=== PATIENT | female | born 1995 | race Caucasian/White ===

== ENCOUNTER 2016-11-30 04:50 | Emergency (ER) | payer SELFPAY ==
[~2016-11-30] VITALS: Ht 162.6 cm; Wt 127.8 kg
[~2016-11-30 04:50] MED LIST: CYCL-259 PO; DOCU240C31 PO; IBUP-1222 PO; OXYC-302 PO
[2016-11-30 04:51] VITALS: BP 140/88
[2016-11-30] MEDS ORDERED: LIDOCAINE 1%, 20ML ONE (05:01)
[2016-11-30] MEDS ORDERED: LIDOCAINE 1%, 20ML SQ ONE (05:30)
[2016-11-30] MEDS ORDERED: BACITRACIN ZINC OINT 500U/GM, 0.9 GM ONE (06:20)
== END 2016-11-30 06:28 | disposition home or self-care (01) ==
LOC: ED 05:35
DX: S71.111A Laceration without foreign body, right thigh, initial encounter (principal); W26.8XXA Contact with other sharp object(s), not elsewhere classified, initial encounter; Y93.89 Activity, other specified; Y99.8 Other external cause status; Y92.009 Unspecified place in unspecified non-institutional (private) residence as the place of occurrence of the external cause
CPT/HCPCS: 12034

== ENCOUNTER 2016-12-10 18:07 | Emergency (ER) | payer BC ==
[~2016-12-10] VITALS: Ht 162.6 cm; Wt 125.4 kg
[2016-12-10 18:11] VITALS: BP 123/72
== END 2016-12-10 18:46 | disposition home or self-care (01) ==
LOC: ED 18:40
DX: S71.111D Laceration without foreign body, right thigh, subsequent encounter (principal)
CPT/HCPCS: 99281

== ENCOUNTER 2018-08-20 16:24 | Emergency (ER) | payer BC ==
[~2018-08-20] VITALS: Ht 162.6 cm; Wt 102.1 kg
[2018-08-20 16:40] VITALS: BP 114/70
--- NOTE | 2018-08-20 17:05 | NUR ---
URINE COLLECTED/SENT TO LAB. WARM BLANKET PROVIDED, CALL LIGHT WITHIN REACH. ERP IN TO SEE PT.
[2018-08-20 17:23] LABS: MICROSCOPIC INDICATED
[2018-08-20 17:24] LABS: CULTURE INDICATED? YES
[2018-08-20 17:35] LABS: BASOPHILS # (AUTO) 0.04 x10^3/uL (0-0.1); BASOPHILS % (AUTO) 1 % (0-1); EOSINOPHILS # (AUTO) 0.08 x10^3/uL (0-0.4); EOSINOPHILS % (AUTO) 1 % (1-7); LYMPHOCYTES # (AUTO) 1.97 x10^3/uL (1-3.4); LYMPHOCYTES % (AUTO) 28 % (22-44); MD NO; MEAN CORPUSCULAR HGB CONC 33.8 g/dL (32.4-35.8); MEAN CORPUSCULAR VOLUME 88.8 fL (80-100); MEAN PLATELET VOLUME 9.6 fL (7.4-10.4); MONOCYTES # (AUTO) 0.36 x10^3/uL (0.2-0.8); MONOCYTES % (AUTO) 5 % (2-9); NEUTROPHILS # (AUTO) 4.68 x10^3/uL (1.8-6.8); NEUTROPHILS % (AUTO) 66 % (42-75); PLATELET COUNT 261 x10^3/uL (130-400); RED BLOOD COUNT 4.39 x10^6/uL (3.82-5.3); RED CELL DISTRIBUTION WIDTH 13.3 % (9.6-15.2)
[2018-08-20 17:43] LABS: ALBUMIN 3.6 g/dL (3.4-5.0); ANION GAP 5 mmol/L (5-15); CALCIUM 8.7 mg/dL (8.5-10.1); CHLORIDE 112 mmol/L (98-107); CREATININE 0.55 mg/dL (0.55-1.02)
--- NOTE | 2018-08-20 17:55 | NUR ---
PT TO US.
--- NOTE | 2018-08-20 18:44 | NUR ---
US RESULTS BACK, PT FOR RECHECK.
--- NOTE | 2018-08-20 18:59 | NUR ---
REPORT TO [facility].
== END 2018-08-20 19:12 | disposition home or self-care (01) ==
LOC: ED 17:32
DX: O23.11 Infections of bladder in pregnancy, first trimester (principal); Z3A.12 12 weeks gestation of pregnancy
CPT/HCPCS: 36415; 76801; 80048; 81001; 82040; 84702; 85025; 86901; 87086; 99284

== ENCOUNTER 2018-10-20 20:17 | Outpatient (CLI) | payer BC ==
[~2018-10-20] VITALS: Ht 162.6 cm; Wt 100.0 kg
[2018-10-20 20:49] LABS: MICROSCOPIC INDICATED
[2018-10-20] MEDS ORDERED: ONDA4TAB7 PO (21:14)
[2018-10-20] MEDS ORDERED: NITROFURANTOIN (MACROBID) 100 MG CAPSULE ONE (21:17)
[2018-10-20] MEDS ORDERED: NITROFURANTOIN (MACROBID) 100 MG CAPSULE PO ONE (21:30)
== END 2018-10-20 21:20 | disposition home or self-care (01) ==
LOC: LDOP 20:17
PROVIDERS: ATTEND Obstetrics & Gynecology
DX: O26.892 Other specified pregnancy related conditions, second trimester (principal); R10.9 Unspecified abdominal pain; Z3A.19 19 weeks gestation of pregnancy
CPT/HCPCS: 81001; 87086; 99211; G0463

== ENCOUNTER 2018-12-29 22:56 | Outpatient (CLI) | payer BC ==
[~2018-12-29] VITALS: Ht 162.6 cm; Wt 130.0 kg
[2018-12-29 23:24] VITALS: BP 133/65
== END 2018-12-30 02:03 | disposition home or self-care (01) ==
LOC: LDOP 22:56
PROVIDERS: ATTEND Obstetrics & Gynecology
DX: O26.893 Other specified pregnancy related conditions, third trimester (principal); Z3A.38 38 weeks gestation of pregnancy
CPT/HCPCS: 59025; 81003; 87086; 99211; J3105; G0463

== ENCOUNTER 2019-03-08 06:02 | Inpatient (IN) | payer BC ==
[~2019-03-08] VITALS: Ht 162.6 cm; Wt 109.0 kg
[~2019-03-08 06:02] MED LIST changes: +ONDA4TAB7 PO; +PREN1TAB60 PO; +PROM12.57 PO; +SERT50TA PO
[2019-03-08] MEDS ORDERED: OXYTOCIN 30U/ 0.9% NaCL 500ML 500 ML IV PRN (06:04)
[2019-03-08] MEDS ORDERED: D5%-LACTATED RINGERS 1,000 ML IV SCH (06:04)
[2019-03-08] MEDS ORDERED: OXYTOCIN 30U/ 0.9% NaCL 500ML 500 ML IV ONE (06:04)
[2019-03-08 06:15] VITALS: BP 116/63
[2019-03-08] MEDS ORDERED: NEWBORN KIT ONE (06:24)
[2019-03-08] MEDS ORDERED: OXYTOCIN 30U/ 0.9% NaCL 500ML 500 ML ONE ×2 (06:25→23:12)
[2019-03-08] MEDS ORDERED: MISOPROSTOL 200 MCG TABLET ONE (06:25)
[2019-03-08] MEDS ORDERED: LIDOCAINE 1%, 20ML ONE (06:25)
[2019-03-08] MEDS ORDERED: BUTORPHANOL 1 MG/ML, 1ML IVPush PRN (06:30)
[2019-03-08] MEDS ORDERED: SODIUM CITRATE/CITRIC ACID 30 ML UDC PO PRN (06:30)
[2019-03-08] MEDS ORDERED: PLEASE ENTER HEIGHT AND WEIGHT MC SCH (06:30)
[2019-03-08] MEDS ORDERED: FENTANYL PF 100 MCG/2ML IV PRN (06:30)
[2019-03-08] MEDS ORDERED: PENICILLIN GK 5,000,000 UNITS in DEXTROSE 5% 100 ML IVPB ONE (06:30)
[2019-03-08] MEDS ORDERED: TERBUTALINE 1 MG/ML, 1ML SQ PRN (06:30)
[2019-03-08] MEDS ORDERED: ONDANSETRON 2MG/ML, 2ML IVPush PRN (06:30)
[2019-03-08] MEDS ORDERED: MISOPROSTOL 25 MCG TABLET VG PRN (06:30)
[2019-03-08] MEDS ORDERED: ALUMINUM/MAG/SIMETHICONE 30 ML UDC PO PRN (06:30)
[2019-03-08] MEDS ORDERED: TERBUTALINE 1 MG/ML, 1ML IVPush PRN (06:30)
[2019-03-08] MEDS: LACTATED RINGERS 1,000 ML IV SCH ×3 (06:41→21:46)
[2019-03-08 06:43] LABS: BASOPHILS # (AUTO) 0.04 x10^3/uL (0-0.1); BASOPHILS % (AUTO) 0 % (0-1); EOSINOPHILS # (AUTO) 0.22 x10^3/uL (0-0.4); EOSINOPHILS % (AUTO) 2 % (1-7); LYMPHOCYTES # (AUTO) 2.41 x10^3/uL (1-3.4); LYMPHOCYTES % (AUTO) 24 % (22-44); MD NO; MEAN CORPUSCULAR HEMOGLOBIN 29.8 pg (27.0-34.8); MEAN CORPUSCULAR HGB CONC 33.1 g/dL (32.4-35.8); MEAN CORPUSCULAR VOLUME 89.9 fL (80-100); MEAN PLATELET VOLUME 9.5 fL (7.4-10.4); MONOCYTES # (AUTO) 0.61 x10^3/uL (0.2-0.8); MONOCYTES % (AUTO) 6 % (2-9); NEUTROPHILS # (AUTO) 6.86 x10^3/uL (1.8-6.8); NEUTROPHILS % (AUTO) 68 % (42-75); PLATELET COUNT 246 x10^3/uL (130-400); RED BLOOD COUNT 3.85 x10^6/uL (3.82-5.3); RED CELL DISTRIBUTION WIDTH 13.1 % (9.6-15.2)
[2019-03-08] MEDS ORDERED: FENTANYL/BUPIV./NS/PF 250 ML EPIDCONT SCH (07:16)
[2019-03-08] MEDS ORDERED: FENTANYL PF 500 MCG, BUPIVACAINE/PF 0.5%, 30ML 62.5 ML in SODIUM CHLORIDE 0.9% 177.5 ML EPIDCONT SCH (07:30)
[2019-03-08] MEDS: PENICILLIN GK 2,500,000 UNITS in DEXTROSE 5% 100 ML IVPB SCH ×3 (10:32→18:51)
[2019-03-08] MEDS ORDERED: FENTANYL PF 100 MCG/2ML ONE ×2 (12:42→13:59)
[2019-03-08] MEDS: FENTANYL PF 100 MCG/2ML IVPush PRN ×2 (12:45→14:03)
[2019-03-08] MEDS ORDERED: ONDANSETRON 2MG/ML, 2ML ONE (15:41)
[2019-03-08] MEDS ORDERED: IBUPROFEN 600 MG TABLET ONE (22:19)
[2019-03-08] MEDS: IBUPROFEN 600 MG TABLET PO PRN (22:26)
[2019-03-08] MEDS ORDERED: OXYcodone/APAP 5/325MG TABLET PO PRN (22:30)
[2019-03-08] MEDS ORDERED: CARBOPROST TROMETHAMINE 250 MCG/ML, 1ML IM PRN (22:30)
[2019-03-08] MEDS ORDERED: MISOPROSTOL 200 MCG TABLET PR PRN (22:30)
[2019-03-08] MEDS ORDERED: ONDANSETRON 2MG/ML, 2ML IV PRN (22:30)
[2019-03-08] MEDS ORDERED: SIMETHICONE 80 MG CHEW TAB PO PRN (22:30)
[2019-03-08] MEDS ORDERED: ACETAMINOPHEN 325 MG TABLET PO PRN (22:30)
[2019-03-08] MEDS: OXYTOCIN 30U/ 0.9% NaCL 500ML 500 ML IV SCH (23:14)
[2019-03-08 23:30] VITALS: BP 107/71
[2019-03-09 04:00] VITALS: BP 120/77
[2019-03-09] MEDS: IBUPROFEN 600 MG TABLET PO PRN ×3 (05:15→18:29)
[2019-03-09] MEDS: OXYcodone/APAP 5/325MG TABLET PO PRN ×3 (05:47→16:38)
[2019-03-09 06:13] LABS: BASOPHILS # (AUTO) 0.04 x10^3/uL (0-0.1); BASOPHILS % (AUTO) 0 % (0-1); EOSINOPHILS # (AUTO) 0.19 x10^3/uL (0-0.4); EOSINOPHILS % (AUTO) 2 % (1-7); LYMPHOCYTES # (AUTO) 2.05 x10^3/uL (1-3.4); LYMPHOCYTES % (AUTO) 17 % (22-44); MD NO; MEAN CORPUSCULAR HEMOGLOBIN 29.5 pg (27.0-34.8); MEAN CORPUSCULAR HGB CONC 32.8 g/dL (32.4-35.8); MEAN CORPUSCULAR VOLUME 89.9 fL (80-100); MEAN PLATELET VOLUME 9.6 fL (7.4-10.4); MONOCYTES # (AUTO) 0.58 x10^3/uL (0.2-0.8); MONOCYTES % (AUTO) 5 % (2-9); NEUTROPHILS # (AUTO) 9.15 x10^3/uL (1.8-6.8); NEUTROPHILS % (AUTO) 76 % (42-75); PLATELET COUNT 211 x10^3/uL (130-400); RED CELL DISTRIBUTION WIDTH 13.1 % (9.6-15.2)
[2019-03-09 07:15] VITALS: BP 116/76
[2019-03-09] MEDS: OXYTOCIN 30U/ 0.9% NaCL 500ML 500 ML IV SCH ×2 (08:20→18:20)
[2019-03-09] MEDS: PRENATAL VIT/IRON/FA 1 EACH TABLET PO SCH (09:00)
[2019-03-09] MEDS: SERTRALINE 50MG TABLET PO SCH (09:00)
[2019-03-09] MEDS: DOCUSATE 100 MG CAPSULE PO PRN (11:44)
[2019-03-09 14:00] VITALS: BP 122/80
[2019-03-09] MEDS ORDERED: FLU VACC QS2019-20 36MOS UP/PF 0.5 ML IM-VACC ONE (18:30)
[2019-03-09 20:00] VITALS: BP 130/82
[2019-03-10] MEDS: IBUPROFEN 600 MG TABLET PO PRN ×2 (01:05→08:59)
[2019-03-10] MEDS: OXYcodone/APAP 5/325MG TABLET PO PRN ×3 (01:06→13:18)
[2019-03-10] MEDS: DOCUSATE 100 MG CAPSULE PO PRN (01:06)
[2019-03-10] MEDS: OXYTOCIN 30U/ 0.9% NaCL 500ML 500 ML IV SCH (04:20)
[2019-03-10 07:15] VITALS: BP 117/81
[2019-03-10] MEDS: PRENATAL VIT/IRON/FA 1 EACH TABLET PO SCH (08:24)
[2019-03-10] MEDS: SERTRALINE 50MG TABLET PO SCH (08:58)
[2019-03-10] MEDS ORDERED: IBUP-1222 PO (13:41)
[2019-03-10] MEDS ORDERED: OXYC-302 PO (13:41)
== END 2019-03-10 13:55 | disposition home or self-care (01) | DRG 807 ==
LOC: LDIP 06:02 → 2NW 23:18
PROVIDERS: ADMIT Obstetrics & Gynecology; ATTEND Obstetrics & Gynecology
PROC: 10E0XZZ Delivery of Products of Conception, External Approach (ICD-10-PCS; principal; 2019-03-08)
PROC: 3E0R3BZ Introduction of Anesthetic Agent into Spinal Canal, Percutaneous Approach (ICD-10-PCS; 2019-03-08)
PROC: 00HU33Z Insertion of Infusion Device into Spinal Canal, Percutaneous Approach (ICD-10-PCS; 2019-03-08)
PROC: 10907ZC Drainage of Amniotic Fluid, Therapeutic from Products of Conception, Via Natural or Artificial Opening (ICD-10-PCS; 2019-03-08)
PROC: 3E033VJ Introduction of Other Hormone into Peripheral Vein, Percutaneous Approach (ICD-10-PCS; 2019-03-08)
DX: O99.824 Streptococcus B carrier state complicating childbirth (principal); Z37.0 Single live birth; Z3A.39 39 weeks gestation of pregnancy; O69.81X0 Labor and delivery complicated by cord around neck, without compression, not applicable or unspecified; O76 Abnormality in fetal heart rate and rhythm complicating labor and delivery; O77.0 Labor and delivery complicated by meconium in amniotic fluid; O99.214 Obesity complicating childbirth; E66.9 Obesity, unspecified; O71.89 Other specified obstetric trauma; O99.344 Other mental disorders complicating childbirth; F41.9 Anxiety disorder, unspecified
CPT/HCPCS: 36415; S0020; 82803; 85025; 86850; 86900; 90686; G0378; J2405; J2540; J3010; J2590; J7050; J7120